=== PATIENT | male | born 1990 ===

== ENCOUNTER 2023-03-03 03:49 | Emergency (ER) | payer OTHER ==
[2023-03-03 04:14] LABS: Absolute Lymphocytes (CBC) 2.9 K/uL (0.7-4.9); Hematocrit 39.9 % (39.6-49.0); Lymphocytes % 31.8 % (15.3-44.8); MCV 94.2 fL (80-100); MPV 7.4 fL (7.6-11.3); RBC Red Blood Cell Count 4.23 M/uL (4.33-5.43)
[2023-03-03 04:31] LABS: ALT/SGPT 34 U/L (16-61); AST/SGOT 27 U/L (15-37); Albumin 3.6 g/dL (3.4-5.0); Alkaline Phosphatase 72 U/L (45-117); BUN Blood Urea Nitrogen 18 mg/dL (7-18); Bicarbonate 25 mEq/L (21-32); Bilirubin Total 0.2 mg/dL (0.2-1.0); Glomerular Filtration Rate 100 ml/min (=/>90); Glucose Level 115 mg/dL (74-106); Potassium 3.5 mEq/L (3.5-5.1); Protein, Total 7.2 g/dL (6.4-8.2); Sodium Level 142 mEq/L (136-145)
[2023-03-03 04:35] LABS: Bilirubin Direct < 0.1 mg/dL (0-0.2); Bilirubin Indirect, Calculated ND mg/dL (0.2-0.8)
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
[2023-03-03 07:09] VITALS: TEMP 98.2
[2023-03-03 07:12] VITALS: BP 119/65; O2SAT 100
--- NOTE | 2023-03-04 16:28 | RAD REPORT ---
EXAM DESCRIPTION: CT Chest, Abdomen and Pelvis With Intravenous Contrast CLINICAL HISTORY: The patient is 32 years old and is Male; TRAUMA TECHNIQUE: Axial computed tomography images of the chest, abdomen and pelvis with intravenous contra st. Sagittal and coronal reformatted images were created and reviewed. This CT exam was performed using one or more of the following dose reduction techniques: automated exposure control, adjustme nt of the mA and/or kV according to patient size, and/or use of iterative reconstruction technique. COMPARISON: No relevant prior studies available. FINDINGS: CHEST: Lungs: Unremarkable. No mass. No consolidation. Pleural space: Unremarkable. No significant effusion. No pneumothorax. Heart: Unremarkable. No cardiomegaly. No significant pericardial effusion. No significant c oronary artery calcifications. ABDOMEN: Liver: Unremarkable. No mass. Gallbladder and bile ducts: Unremarkable. No calcified stones. No ductal dilation. Pancreas: Unremarkable. No ductal dilation. No mass. Spleen: Unremarkable. No splenomegaly. Adrenals: Unremarkable. No mass. Kidneys and ureters: Unremarkable. No hydronephrosis. No solid mass. Stomach and bowel: Unremarkable. No obstruction. No mucosal thickening. PELVIS: Appendix: No findings to suggest acute appendicitis. Bladder: Unremarkable. No mass. Reproductive: Unremarkable as visualized. CHEST, ABDOMEN and PELVIS: Intraperitoneal space: Unremarkable. No significant fluid collection. No free air. Bones/joints: Unremarkable. No acute fracture. No dislocation. Soft tissues: Unremarkable. Vasculature: Unremarkable. No aortic aneurysm. Lymph nodes: Unremarkable. No enlarged lymph nodes. * A single impression for all exams can be found at the end of this report IMPRESSION: CT Head and Cervical Spine Without Intravenous Contrast: No acute intracranial abnormality. No acute findings in the cervical spine. CT Chest, Abdomen and Pelvis With Intravenous Contrast: No acute finding in the chest, abdomen or pelvis. Electronically signed by: Brennon Meeks MD 03/03/2023 6:19 AM CDT Due to temporary technical issues with the PACS/Fluency reporting system, reports are being signed by the in house radiologists without review as a courtesy to insure prompt reporting. The interpreting radiologist is fully responsible for the content of the report.
== END 2023-03-03 07:03 | disposition home or self-care (01) ==
LOC: ER 03:49
DX: M25.512 Pain in left shoulder (principal); V48.5XXA Car driver injured in noncollision transport accident in traffic accident, initial encounter; Z88.2 Allergy status to sulfonamides
CPT/HCPCS: 85025; 80048; 36415; 86900; 86850; 86901; 80076; 70450; 72125; 71260; 74177; 99284; 82077; Q9967